=== PATIENT | male | born 1980 | race African-American/Black ===

== ENCOUNTER 2021-09-24 21:16 | Emergency (ER) | payer MEDICAID, OTHER ==
[~2021-09-24] VITALS: Ht 182.9 cm; Wt 87.0 kg
[2021-09-25 02:10] VITALS: BP 150/89
== END 2021-09-25 02:10 | disposition home or self-care (01) ==
LOC: ER 21:16
DX: F10.129 Alcohol abuse with intoxication, unspecified (principal); Y90.0 Blood alcohol level of less than 20 mg/100 ml; Z87.891 Personal history of nicotine dependence; R11.2 Nausea with vomiting, unspecified
CPT/HCPCS: 99283

== ENCOUNTER 2021-10-23 09:43 | Emergency (ER) | payer MEDICAID, OTHER ==
[~2021-10-23] VITALS: Ht 167.6 cm; Wt 78.0 kg
[2021-10-23 09:59] VITALS: BP 139/85
[2021-10-23] MEDS ORDERED: OFLO5DRO4 RIGHT EAR (11:04)
== END 2021-10-23 11:22 | disposition home or self-care (01) ==
LOC: ER 10:19
DX: H92.01 Otalgia, right ear (principal); F17.290 Nicotine dependence, other tobacco product, uncomplicated
CPT/HCPCS: 99281; 99283; 99406

== ENCOUNTER 2024-02-27 02:41 | Emergency (ER) | payer MEDICAID, OTHER ==
[~2024-02-27] VITALS: Ht 167.6 cm; Wt 91.0 kg
[~2024-02-27 02:41] MED LIST: OFLO5DRO4 RIGHT EAR
[2024-02-27 02:45] VITALS: O2SAT 99
[2024-02-27 03:13] VITALS: TEMP 98.1; O2SAT 97
[2024-02-27 04:18] VITALS: BP 128/82; PULSE 111; RESP 16
[2024-02-27] MEDS: KETOROLAC 15MG/ML VIAL IM ONE (04:18)
[2024-02-27] MEDS ORDERED: LIDO700A15 TP (04:22)
[2024-02-27] MEDS ORDERED: NAPR-1176 MT (04:22)
[2024-02-27] MEDS ORDERED: CYCL5TAB3 MT (04:25)
== END 2024-02-27 04:27 | disposition home or self-care (01) ==
LOC: ER 02:41
DX: S00.83XA Contusion of other part of head, initial encounter (principal); X58.XXXA Exposure to other specified factors, initial encounter; Y93.89 Activity, other specified; Y92.89 Other specified places as the place of occurrence of the external cause; Y99.8 Other external cause status
CPT/HCPCS: 99283; 96372; J1885